=== PATIENT | female | born 1960 | race Caucasian/White ===

== ENCOUNTER 2021-02-08 19:16 | Inpatient (IN) | payer BC ==
[~2021-02-08] VITALS: Ht 172.7 cm; Wt 213.2 kg
[2021-02-08] MEDS ORDERED: ALBUTEROL SULFATE 2.5 MG/3 ML NEBU NEB ONE (19:30)
[2021-02-08] MEDS ORDERED: IPRATROPIUM BROMIDE 0.5 MG/2.5 ML NEBU NEB ONE (19:30)
--- NOTE | 2021-02-08 19:30 | NUR ---
recieved report from [facility]. Pt arrived just prior to shift change at approx 1915. Pt is morbidly obese approx 500lbs with sob poss r/o covid 19. Pt has low sats in the mid to high 80s. No diaphoresis or pain present. Pt is slightly hypotensive at 91/65 and tachy at 119bpm ST. Pt is in no acute distress.
--- NOTE | 2021-02-08 19:40 | NUR ---
EDMD at pt bedside to eval pt condition. Pt is satting around 86-88%
--- NOTE | 2021-02-08 19:50 | NUR ---
Breathing txs ordered for pt who is mildly dyspnic and tachypnic. Two RTs at bedside to start breathing tx. Breathing tx initiated, pt satting at 91% on high flow NRB
[2021-02-08] MEDS ORDERED: ALBUTEROL SULFATE 2.5 MG/ 0.5 ML NEBU ONE (19:55)
[2021-02-08] MEDS ORDERED: IPRATROPIUM BROMIDE 0.5 MG/2.5 ML NEBU ONE (19:55)
[2021-02-08] MEDS ORDERED: FUROSEMIDE 40 MG/4 ML VIAL IV ONE (20:00)
--- NOTE | 2021-02-08 20:05 | NUR ---
Pt placed on bipap at 100% by RT per EDMD order. Pt's SaO2 jumped amita 99% on bipap. Pts saturation holding firm at 99%. RT said she will be back down in a little bit to titrate the pt down from 100% O2. VSS BP: 102/68
--- NOTE | 2021-02-08 21:00 | NUR ---
Unable to get ABG. Patient refused to let us try again. ER Doctor aware.
[2021-02-08] MEDS ORDERED: FUROSEMIDE 20 MG/2 ML VIAL ONE (21:04)
[2021-02-08] MEDS ORDERED: FUROSEMIDE 40 MG/4 ML VIAL ONE (21:04)
[2021-02-08] MEDS ORDERED: FAMO40TA7 PO (21:19)
[2021-02-08] MEDS ORDERED: DOCU100C36 PO (21:19)
[2021-02-08] MEDS ORDERED: FURO40TA5 PO (21:19)
[2021-02-08] MEDS ORDERED: GABA-532 PO (21:19)
[2021-02-08] MEDS ORDERED: TELM1TAB2 PO (21:19)
[2021-02-08] MEDS ORDERED: INSU100V7 SQ (21:19)
[2021-02-08] MEDS ORDERED: INSU100C SUBCUT (21:19)
[2021-02-08] MEDS ORDERED: ASPI81TA31 PO (21:19)
[2021-02-08] MEDS ORDERED: LEVE500T20 PO (21:19)
[2021-02-08] MEDS ORDERED: AMLO2.5T4 PO (21:19)
[2021-02-08] MEDS ORDERED: ALBU2.5V13 IH (21:20)
[2021-02-08 21:33] LABS: MEAN CORPUSCULAR HEMOGLOBIN 27.7 uug (24.7-32.8); MEAN CORPUSCULAR VOLUME 88.2 fL (75.5-95.3); PLATELET COUNT (AUTO) 183 K/uL (179-408)
[2021-02-08 21:43] LABS: CREATININE 1.3 mg/dL (0.6-1.3)
[2021-02-08] MEDS ORDERED: FUROSEMIDE 20 MG TABLET PO ONE (22:00)
[2021-02-08] MEDS ORDERED: FUROSEMIDE 20 MG TABLET ONE (22:00)
[2021-02-08] MEDS ORDERED: ONDANSETRON 4 MG/2 ML VIAL IV PRN (23:30)
[2021-02-08] MEDS ORDERED: INSULIN REGULAR, HUMAN 300 UNIT/3 ML VIAL SQ PRN (23:30)
[2021-02-08] MEDS ORDERED: INSULIN REGULAR, HUMAN 300 UNITS/3 ML VIAL SQ PRN (23:30)
[2021-02-08] MEDS ORDERED: ALBUTEROL SULFATE 2.5 MG/3 ML NEBU IH PRN (23:30)
[2021-02-08] MEDS ORDERED: ENOXAPARIN SODIUM 40 MG/0.4 ML DISP.SYRIN SQ SCH (23:30)
[2021-02-08] MEDS: INSULIN GLARGINE,HUM 300 UNITS/3 ML CARTRIDGE SQ SCH (23:30)
[2021-02-08] MEDS ORDERED: Z GUARD REMEDY PASTE 57 GM TUBE TOP PRN (23:30)
[2021-02-08] MEDS ORDERED: ACETAMINOPHEN 325 MG TABLET PO PRN (23:30)
[2021-02-08] MEDS ORDERED: HYDROCODONE/APAP 5-325MG TABLET PO PRN (23:30)
[2021-02-08] MEDS ORDERED: MAGNESIUM HYDROXIDE 30 ML LIQUID UDC PO PRN (23:30)
[2021-02-08] MEDS ORDERED: DEXTROSE 50% 50 ML DISP.SYRIN IV PRN (23:30)
--- NOTE | 2021-02-08 23:30 | NUR ---
Pt's personal skin care specialist called by the name of Nelly Beebe. She is pts primary skin care specialist and will be the one taking her home from the hospital. Nelly states that pt was at [facility] for same thing CO2 retention and low SaO2 in mid january from 01/14-01/24. Nelly Beebe left her phone number and said to call for any questions or when Ms. Schofield is ready to be picked up. . Nelly states that Ms Schofield suffers from CO2 retention and low O2 perpetually and is placed on long hours of Bipap to correct the CO2 levels. Pt is satting at 99%.
--- NOTE | 2021-02-08 23:30 | NUR ---
50 units of Lantus held due to pt being NPO and BG being 164. Med withheld because did not want to risk bottoming out the BG since pt is unable to eat anything per admitting MD order.
--- NOTE | 2021-02-09 01:48 | NUR ---
Pt resting comfortably with audible snoring. VSS, in no apparent distress. 105/72, 99% Bipap, 106bpm 16 rpm, 2/10 back pain due to gurney. Pt in holding pattern waiting for room assignment.
[2021-02-09] MEDS ORDERED: ENOXAPARIN SODIUM 40 MG/0.4 ML DISP.SYRIN SQ ONE (02:01)
[2021-02-09] MEDS ORDERED: FUROSEMIDE 40 MG/4 ML VIAL ONE (02:01)
[2021-02-09] MEDS ORDERED: INSULIN GLARGINE,HUM 300 UNITS/3 ML CARTRIDGE SQ ONE (02:06)
[2021-02-09] MEDS: FUROSEMIDE 40 MG/4 ML VIAL IV SCH ×2 (05:30)
[2021-02-09 06:24] LABS: HEMATOCRIT 29.6 % (31.2-41.9); MEAN CORPUSCULAR HEMOGLOBIN 27.6 uug (24.7-32.8); MEAN CORPUSCULAR VOLUME 88.2 fL (75.5-95.3); PLATELET COUNT (AUTO) 159 K/uL (179-408)
[2021-02-09 06:37] LABS: CREATININE 1.3 mg/dL (0.6-1.3); MAGNESIUM 1.7 mg/dL (1.8-2.4); PHOSPHOROUS 5.4 mg/dL (2.5-4.9); POTASSIUM 5.2 mmol/L (3.5-5.1)
[2021-02-09] MEDS ORDERED: PANTOPRAZOLE SODIUM 40 MG TABLET.DR PO SCH (07:00)
--- NOTE | 2021-02-09 08:04 | NUR ---
Just informed that Room 329 has been just assigned to pt. Charge nurse Adonis instructed me to call 3rd floor and give report and expodite moving admitted pts to floor. 3rd floor called to give report, however, I was told that nurse are still very busy bc they had just finished recieving report and are still assessing their pts. I asked if the recieving nurse could call me when she is ready. If no call recieved in 30-45 min, I will attempt a second call. Pt is patiently await transport to room for the gurney is becoming extremely painful to lie in.
--- NOTE | 2021-02-09 08:09 | NUR ---
VSS BP:131/58, 104bpm, 91% RA, 97%, 16rpm. pt denies any pain or sob
[2021-02-09] MEDS ORDERED: PANTOPRAZOLE SODIUM 40 MG TABLET.DR PO ONE (08:29)
[2021-02-09] MEDS: GABAPENTIN 300 MG CAPSULE PO SCH ×3 (09:00→17:00)
[2021-02-09] MEDS: ASPIRIN 81 MG TAB.CHEW PO SCH (09:00)
[2021-02-09] MEDS ORDERED: levETIRAcetam 500 MG TABLET PO SCH (09:00)
[2021-02-09] MEDS: LOSARTAN POTASSIUM 50 MG TABLET PO SCH (09:00)
[2021-02-09] MEDS: AMLODIPINE 2.5 MG TABLET PO SCH (09:00)
[2021-02-09] MEDS: DOCUSATE SODIUM 100 MG CAPSULE PO SCH ×2 (09:00→17:00)
[2021-02-09] MEDS ORDERED: MAGNESIUM OXIDE 400 MG TABLET PO ONE (11:00)
[2021-02-09] MEDS ORDERED: ASPIRIN 81 MG TAB.CHEW ONE (11:49)
[2021-02-09] MEDS ORDERED: DOCUSATE SODIUM 100 MG CAPSULE PO ONE (11:49)
[2021-02-09] MEDS ORDERED: levETIRAcetam 250 MG TABLET ONE (11:51)
[2021-02-09] MEDS ORDERED: GABAPENTIN 300 MG CAPSULE ONE (11:52)
[2021-02-09] MEDS ORDERED: AMLODIPINE 2.5 MG TABLET ONE (11:52)
[2021-02-09 12:00] VITALS: BP 102/46
[2021-02-09] MEDS ORDERED: AZITHROMYCIN IV 250 MG in IV DEXTROSE 5% 250 ML IV SCH (12:00)
--- NOTE | 2021-02-09 12:40 | NUR ---
Pt trans to third floor by PEDRO Hall.
[2021-02-09] MEDS ORDERED: AMLO-212 PO (12:48)
[2021-02-09] MEDS ORDERED: DULO60CA64 PO (12:57)
[2021-02-09] MEDS ORDERED: LISI10TA29 PO (12:59)
[2021-02-09 13:00] VITALS: BP 110/54
[2021-02-09] MEDS: BLOOD SUGAR DIAGNOSTIC 1 EACH STRIP VI SCH ×3 (13:00→22:13)
[2021-02-09] MEDS ORDERED: AZITHROMYCIN IV 500 MG in IV DEXTROSE 5% 250 ML IV SCH ×2 (13:00→14:00)
[2021-02-09] MEDS ORDERED: POTA-10 PO (13:03)
[2021-02-09] MEDS ORDERED: ALLO100T PO (13:04)
[2021-02-09] MEDS ORDERED: ATOR40TA PO (13:05)
[2021-02-09] MEDS ORDERED: TIOT18CA3 IH (13:05)
--- NOTE | 2021-02-09 13:30 | NUR ---
Received patient from ER transferred via gurney by Rafael VASQUEZ. Patient is alert, verbally responsive, oriented x3, on non-rebreather at 15LPM. RT initially placed patient on Nasal cannula at 6LPM but O2 sat dropped to 80-85% so RT placed patient back to non-rebreather at 15LPM. Peripheral IV lines on right upper arm G22 patent and right forearm G24 hardly flushing same as endorsed by Rafael. She denies any pain or discomfort at this time. Assisted with her needs. Torrie Lynn BUSINESS PROCESS EXPERT came to see patient and said patient be kept on NPO and do PCR covid test and place on isolation as PUI.
[2021-02-09] MEDS: DEXAMETHASONE SOD PHOSPHATE 10 MG INJ IV SCH (18:29)
--- NOTE | 2021-02-09 19:35 | NUR ---
Received patient lying in bed with eyes closed. Responsive to questions, and able to obey commands, however, too lethargic to stay up. On 15L O2 via non-rebreather mask, saturating at 97-100%. Sinus rhythm on telemonitor. IV on R UA, intact and patent. IV on RFA, difficult to flush. Bedbound, difficult to assess back. Attempted to insert little catheter, however, unsuccessful due to difficulty. Patient kept on NPO to avoid aspiration. Safety precautions initiated. Will continue to monitor.
[2021-02-09 20:00] VITALS: BP 104/66
[2021-02-09] MEDS: INSULIN GLARGINE,HUM 300 UNITS/3 ML CARTRIDGE SQ SCH (21:00)
[2021-02-09] MEDS: levETIRAcetam IV 500 MG in IV DEXTROSE 5% 100 ML IV SCH (22:07)
[2021-02-09] MEDS: ENOXAPARIN SODIUM 40 MG/0.4 ML DISP.SYRIN SQ SCH (22:36)
[2021-02-10] VITALS: BP 112/64
--- NOTE | 2021-02-10 02:30 | NUR ---
Inserted little catheter, draining yellow urine. However, not enough to collect urine sample.
--- NOTE | 2021-02-10 03:30 | NUR ---
Urine collected and sent to lab.
[2021-02-10 04:00] VITALS: BP 110/71
[2021-02-10 05:15] LABS: *BILIRUBIN,URIN NEGATIVE (NEGATIVE); *BLOOD, URINE 2+ (NEGATIVE); *CLARITY,URINE CLEAR (CLEAR); *COLOR,URINE YELLOW (YELLOW); *KETONES,URINE NEGATIVE (NEGATIVE); *UROBILINOGEN,URINE 0.2 E.U./dl (NORMAL); LEUKOCYTE ESTERASE ,URINE NEGATIVE (NEGATIVE); NITRITE, URINE NEGATIVE (NEGATIVE); UGLUCOSE NEGATIVE (NEGATIVE)
[2021-02-10 05:34] LABS: BACTERIA,URINE NONE SEEN /HPF (NONE SEEN); SQUAMOUS EPITHELIAL CELL,UR FEW /HPF (NONE SEEN); URINE AMORPHOUS URATE MODERATE /HPF; WBC,URINE 0-3 /HPF (0-3)
--- NOTE | 2021-02-10 06:18 | NUR ---
Patient slept through the night, appears lethargic but responds by nodding head. IV access on SHAMIR, intact and patent. On tele monitor, showing sinus tachycardia with HR of 104bpm. On 15L NRM, saturating at 98%, however, desaturates down to 84% when moving in bed. With little catheter, draining clear yellow urine. Patient kept on NPO. All needs were attended to and met. Will endorse to day shift.
[2021-02-10 06:34] LABS: HEMATOCRIT 28.7 % (31.2-41.9); MEAN CORPUSCULAR HEMOGLOBIN 28.2 uug (24.7-32.8); MEAN CORPUSCULAR VOLUME 89.7 fL (75.5-95.3); PLATELET COUNT (AUTO) 172 K/uL (179-408)
[2021-02-10 07:21] LABS: CREATININE 1.3 mg/dL (0.6-1.3); MAGNESIUM 1.7 mg/dL (1.8-2.4); PHOSPHOROUS 5.6 mg/dL (2.5-4.9); POTASSIUM 5.6 mmol/L (3.5-5.1)
[2021-02-10] MEDS: BLOOD SUGAR DIAGNOSTIC 1 EACH STRIP VI SCH ×3 (07:40→16:51)
[2021-02-10 07:47] LABS: ABG HCO3 31.1 mmol/L; ABG PH 7.166 (7.350-7.450); ABG PO2 72.1 mmHg (75.0-100.0); ABG SITE RIGHT RADIAL; ABG TOTAL HEMOGLOBIN 9.9 G/dL (12.0-16.0); MetHb 0.1 % (0.0-1.5); O2Hb 94.1 % (94.0-97.0)
--- NOTE | 2021-02-10 08:00 | NUR ---
Patient placed on bipap, settings 18/8 Rate 18/ FIO2 100%. Will continue to monitor.
--- NOTE | 2021-02-10 08:11 | NUR ---
ROUTINE ABG PERFORMED PER DR MUNGUIA ORDER. PER RESULTS, PT PLACED BACK ON BIPAP WITH SETTINGS 18/8/RATE 18/100%. WILL CONTINUE TO CLOSELY MONITOR. PEDRO BRAY AWARE AND NOTIFIED
[2021-02-10] MEDS ORDERED: SODIUM POLYSTYRENE SULFONATE 15 G/60 ML LIQUID UDC PO ONE (09:00)
[2021-02-10] MEDS: GABAPENTIN 300 MG CAPSULE PO SCH ×3 (09:00→17:00)
[2021-02-10] MEDS: DOCUSATE SODIUM 100 MG CAPSULE PO SCH ×2 (09:00→17:00)
[2021-02-10] MEDS: LOSARTAN POTASSIUM 50 MG TABLET PO SCH (09:00)
[2021-02-10] MEDS: ASPIRIN 81 MG TAB.CHEW PO SCH (09:00)
[2021-02-10] MEDS ORDERED: FUROSEMIDE 40 MG/4 ML VIAL IV ONE (09:00)
[2021-02-10] MEDS: AMLODIPINE 2.5 MG TABLET PO SCH (09:00)
[2021-02-10] MEDS: PANTOPRAZOLE SODIUM 40 MG VIAL IV SCH (09:01)
[2021-02-10] MEDS: DEXAMETHASONE SOD PHOSPHATE 10 MG INJ IV SCH ×2 (09:02→17:54)
[2021-02-10] MEDS: levETIRAcetam IV 500 MG in IV DEXTROSE 5% 100 ML IV SCH ×2 (09:04→20:42)
[2021-02-10] MEDS: MAGNESIUM SULFATE/D5W 100 ML IV SCH ×2 (09:52→11:28)
[2021-02-10] MEDS ORDERED: DEXTROSE 50% 50 ML DISP.SYRIN IV ONE (10:15)
[2021-02-10] MEDS ORDERED: INSULIN REGULAR, HUMAN 300 UNIT/3 ML VIAL IV ONE (10:15)
[2021-02-10] MEDS ORDERED: PIPERACILLIN SODIUM/TAZOBACTAM 3.375 G in IV DEXTROSE 5% 50 ML IV ONE (11:00)
[2021-02-10] MEDS ORDERED: PIPERACILLIN SODIUM/TAZOBACTAM 3.375 G in IV DEXTROSE 5% 50 ML IV SCH (14:00)
[2021-02-10 15:30] VITALS: BP 86/33
--- NOTE | 2021-02-10 15:35 | NUR ---
Patient BP 86/33. LICENSED OCCUPATIONAL THERAPIST Shane informed. Orders given and carried out. Will continue to monitor.
[2021-02-10] MEDS ORDERED: IV NORMAL SALINE 250 ML IV ONE ×2 (15:45→18:15)
[2021-02-10 18:10] VITALS: BP 91/44
--- NOTE | 2021-02-10 18:15 | NUR ---
Patient BP 91/44. CAPPING MACHINE OPERATOR Shane informed. Orders given and carried out. Will continue to monitor.
--- NOTE | 2021-02-10 19:51 | NUR ---
Patient resting in bed. On Bipap /, 50% saturating at 93-94%. IV access on right UA patent and intact. Willett catheter draining clear, yellow urine. Sinus Tachycardia on revenue tax specialist. Will endorse to incoming shift for continuity of care.
[2021-02-10 20:00] VITALS: BP 98/31
[2021-02-10] MEDS ORDERED: DEXTROSE 50% 50 ML DISP.SYRIN IV PRN (20:15)
[2021-02-10] MEDS: PIPERACILLIN SODIUM/TAZOBACTAM 3.375 G in IV DEXTROSE 5% 100 ML IV SCH (20:37)
[2021-02-10] MEDS: ENOXAPARIN SODIUM 40 MG/0.4 ML DISP.SYRIN SQ SCH (20:38)
[2021-02-11] VITALS: BP 107/33
[2021-02-11] MEDS: BLOOD SUGAR DIAGNOSTIC 1 EACH STRIP VI SCH ×4 (00:32→17:17)
--- NOTE | 2021-02-11 03:23 | NUR ---
PATIENT HAS BEEN ON BI/PAP CONT NOSE CUSHION MASK, TOLL WELL, WITH CONT PULSE OXY SAT 97%. WITH BI/PAP SETTINGS, 22/09 R18, FIO2 @ 50, STABLE, NO CHANGES MADE AT THIS TIME .John HAYES RCP Addendum: 02/11/21 at 0324 by DAGMAR HAYES RT Amended: Links added.
[2021-02-11 04:00] VITALS: BP 100/38
[2021-02-11] MEDS: PIPERACILLIN SODIUM/TAZOBACTAM 3.375 G in IV DEXTROSE 5% 100 ML IV SCH ×3 (04:24→21:08)
--- NOTE | 2021-02-11 06:36 | NUR ---
Pt rested well in between care; pt more alert; tolerates present BiPap settings; pt passed bedside swallow test; c/o pain and norco given with aspiration precaution; needs attended; 2 previous IV dcd and placed new g22 to right wrist;
[2021-02-11 07:26] LABS: HEMATOCRIT 23.1 % (31.2-41.9); MEAN CORPUSCULAR HEMOGLOBIN 27.5 uug (24.7-32.8); PLATELET COUNT (AUTO) 145 K/uL (179-408)
[2021-02-11 07:30] LABS: CREATININE 1.8 mg/dL (0.6-1.3); POTASSIUM 4.6 mmol/L (3.5-5.1)
[2021-02-11 08:00] VITALS: BP 81/31
[2021-02-11] MEDS: PANTOPRAZOLE SODIUM 40 MG VIAL IV SCH (08:00)
[2021-02-11] MEDS: DEXAMETHASONE SOD PHOSPHATE 10 MG INJ IV SCH ×2 (08:00→16:28)
--- NOTE | 2021-02-11 08:00 | NUR ---
AWAKE ALERT AND VERBALLY RESPONSIVE RESPONDING TO VERBAL CUES/QUESTIONS APPROPRIATELY. EASILY SOB ON TURNING FROM SIDE TO SIDE, CONTINUE BIPAP AT SAME SETTINGS SATURATING 95-96% SR ON MONITOR
[2021-02-11] MEDS: levETIRAcetam IV 500 MG in IV DEXTROSE 5% 100 ML IV SCH ×2 (08:02→21:08)
[2021-02-11] MEDS: GABAPENTIN 300 MG CAPSULE PO SCH ×3 (09:00→16:28)
[2021-02-11] MEDS: DOCUSATE SODIUM 100 MG CAPSULE PO SCH ×2 (09:00→16:28)
[2021-02-11] MEDS: LOSARTAN POTASSIUM 50 MG TABLET PO SCH (09:00)
[2021-02-11] MEDS: AMLODIPINE 2.5 MG TABLET PO SCH (09:00)
[2021-02-11] MEDS: ASPIRIN 81 MG TAB.CHEW PO SCH (09:00)
[2021-02-11 09:38] LABS: ABG BASE EXCESS 1.6 mmol/L; ABG HCO3 29.1 mmol/L; ABG PCO2 63.5 mmHg (35.0-45.0); ABG PH 7.279 (7.350-7.450); ABG SITE LEFT RADIAL; ABG TOTAL HEMOGLOBIN 9.1 G/dL (12.0-16.0); COHb 0.1 % (0.5-1.5); MetHb 0.2 % (0.0-1.5); O2Hb 93.6 % (94.0-97.0); VENT MODE BIPAP
[2021-02-11 12:00] VITALS: BP 96/42
--- NOTE | 2021-02-11 12:00 | NUR ---
NO ACUTE CHANGE FROM MORNING ASSESSMENT. RESULTS OF ABG IN DR MUNGUIA MADE OF RESULTS. BIPAP SETTINGS AT 18/8-18-40% SSATURATING 97-98 %
[2021-02-11] MEDS: INSULIN REGULAR, HUMAN 300 UNIT/3 ML VIAL SQ PRN ×2 (12:20→17:19)
[2021-02-11] MEDS ORDERED: IV NORMAL SALINE 500 ML IV ONE (14:15)
[2021-02-11] MEDS ORDERED: IV NS 1000 ML 1,000 ML IV ONE (14:15)
--- NOTE | 2021-02-11 14:52 | NUR ---
SEEN BY DR BLACKWELL NOTED LOW BP WITH ORDER TO GIVE NS BOLUS AND WILL START ON CONTINUOUS IV NS AFTER BOLUS
--- NOTE | 2021-02-11 14:54 | NUR ---
AWAKE ALERT AND RESPONDING APPROPRIATELY WITH VERBAL COMMAND, EASILY GET SOB ON EXERTION OR TURNING FROM SIDE TO SIDE CONTINUE BIPAP ORDERED SR ON MONITOR Addendum: 02/11/21 at 1456 by NADEEM RICK RN 0800 ASSESSMENT
[2021-02-11 15:00] LABS: HEMATOCRIT 25.1 % (31.2-41.9)
[2021-02-11 16:00] VITALS: BP 98/46
--- NOTE | 2021-02-11 19:20 | NUR ---
Per MD orders BIPAP settings are now at IPAP 15, EPAP 5, set resp. rate 22 and FIO2-50%. SpO2 to be targeted at 88-92% No resp. distress noted. Pt appears to be tolerating settings well. Pt to be monitored throughout the shift.
[2021-02-11 20:00] VITALS: BP 105/66
[2021-02-11] MEDS: ATORVASTATIN 40 MG TABLET PO SCH (21:08)
[2021-02-11] MEDS: ENOXAPARIN SODIUM 40 MG/0.4 ML DISP.SYRIN SQ SCH (21:10)
[2021-02-12] VITALS: BP 100/55
[2021-02-12] MEDS: INSULIN REGULAR, HUMAN 300 UNIT/3 ML VIAL SQ PRN ×5 (00:15→23:54)
[2021-02-12] MEDS: BLOOD SUGAR DIAGNOSTIC 1 EACH STRIP VI SCH ×5 (00:17→23:54)
[2021-02-12 04:00] VITALS: BP 115/60
[2021-02-12] MEDS: PIPERACILLIN SODIUM/TAZOBACTAM 3.375 G in IV DEXTROSE 5% 100 ML IV SCH ×3 (05:02→19:59)
--- NOTE | 2021-02-12 05:53 | NUR ---
Slept intermittently. SR/ST on monitor. Able to make needs known. IV sites intact. Willett draining yellow urine to gravity. No distress noted. Will endorse to day shift.
[2021-02-12 08:14] VITALS: BP 124/61
[2021-02-12 08:34] LABS: ABG BASE EXCESS 2.4 mmol/L; ABG HCO3 30.8 mmol/L; ABG PCO2 74.6 mmHg (35.0-45.0); ABG PH 7.234 (7.350-7.450); ABG PO2 72.1 mmHg (75.0-100.0); ABG SITE LEFT RADIAL; ABG TOTAL HEMOGLOBIN 8.7 G/dL (12.0-16.0); COHb 0.1 % (0.5-1.5); MetHb 0.3 % (0.0-1.5); O2Hb 92.4 % (94.0-97.0); VENT MODE BIPAP15/5
[2021-02-12 08:45] LABS: HEMATOCRIT 24.8 % (31.2-41.9); MEAN CORPUSCULAR HEMOGLOBIN 26.7 uug (24.7-32.8); MEAN CORPUSCULAR VOLUME 86.5 fL (75.5-95.3); PLATELET COUNT (AUTO) 146 K/uL (179-408)
[2021-02-12] MEDS: ALLOPURINOL 100 MG TABLET PO SCH ×2 (09:00→09:24)
[2021-02-12] MEDS: ASPIRIN 81 MG TAB.CHEW PO SCH ×2 (09:00→09:24)
[2021-02-12] MEDS: DULOXETINE 60 MG CAPSULE.DR PO SCH ×2 (09:00→09:24)
[2021-02-12] MEDS: PANTOPRAZOLE SODIUM 40 MG VIAL IV SCH (09:23)
[2021-02-12] MEDS: DOCUSATE SODIUM 100 MG CAPSULE PO SCH ×2 (09:24→17:00)
[2021-02-12] MEDS: GABAPENTIN 300 MG CAPSULE PO SCH ×3 (09:24→17:00)
[2021-02-12] MEDS: levETIRAcetam IV 500 MG in IV DEXTROSE 5% 100 ML IV SCH ×2 (09:24→20:00)
[2021-02-12] MEDS: DEXAMETHASONE SOD PHOSPHATE 10 MG INJ IV SCH ×2 (09:24→17:34)
[2021-02-12 09:26] LABS: CREATININE 1.4 mg/dL (0.6-1.3); MAGNESIUM 2.2 mg/dL (1.8-2.4); PHOSPHOROUS 4.3 mg/dL (2.5-4.9); POTASSIUM 4.4 mmol/L (3.5-5.1)
[2021-02-12 12:28] VITALS: BP 112/58
[2021-02-12 17:19] VITALS: BP 117/47
[2021-02-12 20:00] VITALS: BP 113/57
[2021-02-12] MEDS: ATORVASTATIN 40 MG TABLET PO SCH (20:00)
[2021-02-12] MEDS: ENOXAPARIN SODIUM 40 MG/0.4 ML DISP.SYRIN SQ SCH (20:02)
[2021-02-13] VITALS (21 sets, daily range): BP systolic 80–142; BP diastolic 43–80
[2021-02-13] MEDS: PIPERACILLIN SODIUM/TAZOBACTAM 3.375 G in IV DEXTROSE 5% 100 ML IV SCH ×3 (05:11→20:45)
--- NOTE | 2021-02-13 05:40 | NUR ---
Pt very anxious and needy. Able to make needs known. Requesting to drink water throughout shift, educated on NPO status. Oral care provided. Currently tolerating BiPAP, satting at 94%. BP has been stable. IV sites intact. Willett draining urine to gravity.
[2021-02-13] MEDS: BLOOD SUGAR DIAGNOSTIC 1 EACH STRIP VI SCH ×3 (06:17→18:37)
[2021-02-13] MEDS: INSULIN REGULAR, HUMAN 300 UNIT/3 ML VIAL SQ PRN ×2 (06:23→13:06)
[2021-02-13 07:48] LABS: ABG BASE EXCESS 1.5 mmol/L; ABG HCO3 30.1 mmol/L; ABG PCO2 72.9 mmHg (35.0-45.0); ABG PH 7.234 (7.350-7.450); ABG PO2 70.6 mmHg (75.0-100.0); ABG SITE LEFT RADIAL; ABG TOTAL HEMOGLOBIN 9.8 G/dL (12.0-16.0); COHb 0.3 % (0.5-1.5); MetHb 0.4 % (0.0-1.5); O2Hb 91.5 % (94.0-97.0); VENT MODE BIPAP 15/5
--- NOTE | 2021-02-13 08:00 | NUR ---
PT is in no acute distress. Call light is within reach. PT on Bariatric Bed. F/C draining Yellow urine. ML on left upper brachial. intact flushes with minimal resistance. Bariatric bed setting on q turn every 15 mins settings.
[2021-02-13 08:27] LABS: HEMATOCRIT 27.3 % (31.2-41.9); MEAN CORPUSCULAR HEMOGLOBIN 27.2 uug (24.7-32.8); MEAN CORPUSCULAR VOLUME 87.2 fL (75.5-95.3); PLATELET COUNT (AUTO) 152 K/uL (179-408)
[2021-02-13 08:35] LABS: CREATININE 1.3 mg/dL (0.6-1.3); MAGNESIUM 2.1 mg/dL (1.8-2.4); PHOSPHOROUS 4.2 mg/dL (2.5-4.9); POTASSIUM 4.3 mmol/L (3.5-5.1)
--- NOTE | 2021-02-13 09:00 | NUR ---
PT desaturating to 82%. RT repositioned BIPAP mask and changed setting to 100% FIO2 and got o2 sat back up 90%'s . Dr diaz here to see pt and aware of current ABG results and desaturation. No new order received.
--- NOTE | 2021-02-13 09:00 | NUR ---
Unable to give PO meds secondary to pt too lethargic.
[2021-02-13] MEDS: DEXAMETHASONE SOD PHOSPHATE 10 MG INJ IV SCH ×2 (10:11→16:13)
[2021-02-13] MEDS: DOCUSATE SODIUM 100 MG CAPSULE PO SCH ×2 (10:12→15:48)
[2021-02-13] MEDS: DULOXETINE 60 MG CAPSULE.DR PO SCH (10:12)
[2021-02-13] MEDS: ALLOPURINOL 100 MG TABLET PO SCH (10:12)
[2021-02-13] MEDS: ASPIRIN 81 MG TAB.CHEW PO SCH (10:12)
[2021-02-13] MEDS: GABAPENTIN 300 MG CAPSULE PO SCH ×3 (10:12→16:14)
[2021-02-13] MEDS: PANTOPRAZOLE SODIUM 40 MG VIAL IV SCH (10:16)
[2021-02-13] MEDS: levETIRAcetam IV 500 MG in IV DEXTROSE 5% 100 ML IV SCH ×2 (10:16→20:45)
--- NOTE | 2021-02-13 10:30 | NUR ---
Spoke with mechanical shop laborer repeated and verified that there was a specimen sent for pcr on the 02/11.
--- NOTE | 2021-02-13 13:13 | NUR ---
technical service specialist called to check on patient secondary to low HR @ 30's. Saw pt 1315 No breathing noted. 02 sat @ 72% on bipap No pulse Noted. Started CPR and Derek Morales called. ER DR MUNGUIA, RTs, Radiology, Nursing psychiatric social worker supervisor derek morales team here to see pt. See Derek morales recording done by RN psychiatric social worker supervisor. 1331 ET tube inserted by Dr Munguia. Hospitalist Torrie Hammer and Dr diaz aware of the intubation. 1410 Transferred pt to ICU as ordered. VS 126/45 - hr115 sinus tach, pt on vent per 's order and RT team. sat 92%. Report given to TRAFFIC SAFETY ADMINISTRATORPEDRO HARRELL.
--- NOTE | 2021-02-13 13:31 | NUR ---
PT INTUBATED BY WITH A SIZE 7.5 ETT WITHOUT DIFFICULTY. ETT SECURED WITH ANCORFAST APPROX. 24CM AT THE LIP. COLOR CHANGE ON END TIDAL, BI-LATERAL BREATH SOUND OBSERVED. PT PLACED ON VENT ON SETTINGS GIVEN BY DR. ARCHIBALD. PT TRANSPORTED TO [facility]. PT IS CURRENTLY ON VENT SETTINGS OF A/C 28, VT 550, PEEP +8, 100% FIO2. SPUTUM SPECIMEN COLLECTED. BVM AT BEDSIDE. VENT PLUGGED INTO RED OUTLET. WILL CONTINUE TO MONITOR.
[2021-02-13] MEDS ORDERED: EPINEPHRINE 1:10,000 1 MG/10 ML DISP.SYRIN IV ONE (13:51)
[2021-02-13] MEDS ORDERED: ETOMIDATE 20 MG/10 ML VIAL IV ONE (13:51)
[2021-02-13] MEDS: PROPOFOL 100 ML IV PRN ×2 (14:40→21:30)
[2021-02-13 15:21] LABS: ABG BASE EXCESS -3.9 mmol/L; ABG HCO3 27.6 mmol/L; ABG PCO2 97.6 mmHg (35.0-45.0); ABG PO2 72.5 mmHg (75.0-100.0); ABG SITE LEFT RADIAL; ABG TOTAL HEMOGLOBIN 10.4 G/dL (12.0-16.0); COHb 0.2 % (0.5-1.5); MetHb 0.2 % (0.0-1.5); VENT MODE VENT - A/C; VT, ABG 500 mL
[2021-02-13] MEDS ORDERED: SODIUM BICARBONATE 8.4% 50 MEQ/50 ML DISP.SYRIN IV ONE (16:00)
[2021-02-13] MEDS ORDERED: IV NORMAL SALINE 250 ML IV PRN (19:00)
[2021-02-13] MEDS: ENOXAPARIN SODIUM 40 MG/0.4 ML DISP.SYRIN SQ SCH (21:02)
[2021-02-13] MEDS: ATORVASTATIN 40 MG TABLET PO SCH (21:02)
--- NOTE | 2021-02-13 21:30 | NUR ---
Blood cultures, urine cultures, sputum cultures to laboratory.
[2021-02-13] MEDS ORDERED: MEROPENEM 1 G VIAL IV ONE ×2 (21:58→22:00)
[2021-02-13] MEDS ORDERED: VANCOMYCIN HCL 500 MG VIAL ONE (21:59)
[2021-02-13] MEDS ORDERED: VANCOMYCIN 1000 MG VIAL ONE (21:59)
[2021-02-13] MEDS: MEROPENEM 1 G in IV NORMAL SALINE 100 ML IV SCH (22:00)
[2021-02-13] MEDS ORDERED: VANCOMYCIN IV 1,250 MG in IV DEXTROSE 5% 250 ML IV ONE (22:00)
[2021-02-13] MEDS ORDERED: MEROPENEM 1 G in IV NORMAL SALINE 100 ML IV SCH (22:00)
[2021-02-13] MEDS: NOREPINEPHRINE BITARTRATE 8 MG in IV NORMAL SALINE 242 ML IV PRN (23:13)
--- NOTE | 2021-02-13 23:15 | NUR ---
Received notification from laboratory: PCR positive from [id number]
[2021-02-13] MEDS ORDERED: NOREPINEPHRINE BITARTRATE 4 MG/4 ML VIAL IV ONE (23:25)
[2021-02-14] VITALS (43 sets, daily range): BP systolic 83–149; BP diastolic 40–87
[2021-02-14] MEDS: BLOOD SUGAR DIAGNOSTIC 1 EACH STRIP VI SCH ×4 (00:12→17:45)
[2021-02-14] MEDS: INSULIN REGULAR, HUMAN 300 UNIT/3 ML VIAL SQ PRN ×3 (00:14→18:02)
[2021-02-14] MEDS: PROPOFOL 100 ML IV PRN ×9 (02:03→23:23)
[2021-02-14] MEDS: NOREPINEPHRINE BITARTRATE 8 MG in IV NORMAL SALINE 242 ML IV PRN ×3 (03:18→19:42)
[2021-02-14] MEDS: MEROPENEM 1 G in IV NORMAL SALINE 100 ML IV SCH (05:09)
[2021-02-14 05:16] LABS: HEMATOCRIT 27.4 % (31.2-41.9); MEAN CORPUSCULAR VOLUME 86.7 fL (75.5-95.3); PLATELET COUNT (AUTO) 163 K/uL (179-408)
[2021-02-14 05:35] LABS: CREATININE 1.9 mg/dL (0.6-1.3); MAGNESIUM 2.1 mg/dL (1.8-2.4); PHOSPHOROUS 4.7 mg/dL (2.5-4.9); POTASSIUM 4.1 mmol/L (3.5-5.1)
--- NOTE | 2021-02-14 07:15 | NUR ---
Received pt. semi-sedated and attempting to reach ETT. gag and cough reflex present. Hemodynamically unstable, levophed running at 0.1mcg/kg/min. sbp within desire limits. On ventilator ETT 7.5, 24LL. A/C, of 28, Tv500, Peep +8, and FIO2 100%. saturation 92-93%. OG clamped. little to gravity. Iv line present. Patient soiled and stuck to left side of her bed. IV line patent. Sacral area non-blanchable dark purplish area extended to buttocks and sacrum. Skin tear to upper left buttocks area. Unable to take pictures at this time pt. unstable and not tolerating been moved.
--- NOTE | 2021-02-14 09:30 | NUR ---
Social Psychologist Dr. Salazar in the unit to see and follow up on pt. Report given see order hx
[2021-02-14] MEDS: PANTOPRAZOLE SODIUM 40 MG VIAL IV SCH (09:42)
[2021-02-14] MEDS: DEXAMETHASONE SOD PHOSPHATE 10 MG INJ IV SCH ×2 (09:42→17:37)
[2021-02-14] MEDS: GABAPENTIN 300 MG CAPSULE PO SCH ×3 (09:43→17:36)
[2021-02-14] MEDS: ASPIRIN 81 MG TAB.CHEW PO SCH (09:43)
[2021-02-14] MEDS: DOCUSATE SODIUM 100 MG CAPSULE PO SCH ×2 (09:43→17:36)
[2021-02-14] MEDS: levETIRAcetam IV 500 MG in IV DEXTROSE 5% 100 ML IV SCH ×2 (09:46→21:08)
[2021-02-14] MEDS: DULOXETINE 60 MG CAPSULE.DR PO SCH (09:53)
[2021-02-14] MEDS: ALLOPURINOL 100 MG TABLET PO SCH (09:53)
[2021-02-14 10:04] LABS: BILIRUBIN,DIRECT 0.1 mg/dL (0.0-0.2); BILIRUBIN,TOTAL 0.3 mg/dL (0.2-1.0)
[2021-02-14 10:09] LABS: ABG BASE EXCESS 0.9 mmol/L; ABG HCO3 30.4 mmol/L; ABG PCO2 81.9 mmHg (35.0-45.0); ABG PH 7.188 (7.350-7.450); ABG PO2 57.8 mmHg (75.0-100.0); ABG SITE RIGHT RADIAL; ABG TOTAL HEMOGLOBIN 9.8 G/dL (12.0-16.0); COHb 0.1 % (0.5-1.5); O2Hb 87.5 % (94.0-97.0); VENT MODE VENT - A/C; VT, ABG 550 mL
--- NOTE | 2021-02-14 11:00 | NUR ---
Attending Daren Arnold in the unit to follow up on pt. At this time orders to start feeding received. Addendum: 02/14/21 at 1529 by ANTHONY CHAMORRO RN Attending updated on pt's deteriorating condition and informed that feeding wont be possible at this time, She was informed that pt. remains unstable with saturation in the mid70's to 80's.
--- NOTE | 2021-02-14 11:58 | NUR ---
Dr. Salazar called and notified of pt's sustained desaturation. Orders to increase Peep to 10 received and informed to RT Juan Antonio.
[2021-02-14] MEDS ORDERED: VANCOMYCIN IV 2,500 MG in IV DEXTROSE 5% 500 ML IV SCH (12:00)
--- NOTE | 2021-02-14 12:28 | NUR ---
Dr. diaz notified that Patients saturation continues to have saturation in 70's. Received orders to increase Peep to 13.
--- NOTE | 2021-02-14 13:00 | NUR ---
Dr. Salazar updated on pt's current saturation no new orders received.
--- NOTE | 2021-02-14 13:00 | NUR ---
A call from pt's brother and call directed to attending N.P. as reported by Amy. Esther he needed to talk to attending to discuss code status.
[2021-02-14] MEDS ORDERED: TOCILIZUMAB 800 MG in IV NORMAL SALINE 60 ML IV ONE (14:00)
[2021-02-14] MEDS ORDERED: CEFEPIME HCL 2 G in IV DEXTROSE 5% 100 ML IV SCH (14:00)
--- NOTE | 2021-02-14 14:15 | NUR ---
A call from Shlomo Schofield and at this time with Jason Santana as witness and after Attending, Torrie Lynn updated him on pt. current condition. . Shlomo Schofield stated "I want to change the code to DNR". Attending notified as well.
[2021-02-14] MEDS ORDERED: VANCOMYCIN IV 2,500 MG in IV DEXTROSE 5% 500 ML IV ONE (16:15)
--- NOTE | 2021-02-14 17:00 | NUR ---
Dr. Salazar pulmonary services called and updated on current pt's saturation and that pt. poorly tolerating ADL's no new orders received.
--- NOTE | 2021-02-14 19:15 | NUR ---
received patient sedated, no response , on levophed 0.08 mcg , propofol a 40mcg , iv intact on left upperarm , ogt placement checked and verified , mouth is bloody with small clots , suctioned orally little intact , morbid obesity , pulses are weak ST AT 104 , NO FEVER
--- NOTE | 2021-02-14 19:15 | NUR ---
RECEIVED PATIENT SEDATED NO RESPONSE , MORBID OBESITY , ON PROPOFOL AT 40 MCG , LEVOPHED AT 0.08 MCG , ST AT 104 , OGT CLAMPED PLACEMENT CHECKED AND VERIFIED , BLOODY MOUTH WITH SMALL DRY BLOOD , SUCTIONED ORALLY . IV INTACT ON LEFT UPPER ARM , ARMIJO INTACT , PULSES ARE WEAK , VENT SETTING AC 28 TV 500 P 16 , FIO2 100 %
--- NOTE | 2021-02-14 19:15 | NUR ---
PATIENT RECEIVED INTUBATED ON A MECHANICAL VENTILATOR WITH THE FOLLOWING SETTINGS THAT ARE CHARTED ON THE MECHANICAL VENTILATOR NOTES. PATIENT IS INTUBATED WITH A SIZE 7.5 ET TUBE AND IT IS SECURED AT APPROXIMATELY 24 CM AT THE LIP VIA ANCHOR FAST. ET TUBE REPOSITIONED. PRN SUCTIONED DONE. ORAL CARE DONE. VENTILATOR ALARMS CHECKED AND THEY ARE ON AND AUDIBLE. VENTILATOR IS PLUGGED IN THE RED EMERGENCY OUTLET. AMBU BAG IS BY BEDSIDE. PATIENT IS TOLERATING CURRENT VENTILATOR SETTINGS WELL AT THIS TIME. NO SOB NOTED. WILL CONTINUE TO MONITOR.
[2021-02-14] MEDS: NYSTATIN POWDER 15 GM BOTTLE TOP SCH (21:00)
[2021-02-14] MEDS: ATORVASTATIN 40 MG TABLET PO SCH ×2 (21:00→21:12)
[2021-02-14] MEDS: ENOXAPARIN SODIUM 40 MG/0.4 ML DISP.SYRIN SQ SCH (21:13)
[2021-02-15] VITALS (68 sets, daily range): BP systolic 57–150; BP diastolic 33–67
[2021-02-15] MEDS: BLOOD SUGAR DIAGNOSTIC 1 EACH STRIP VI SCH ×4 (00:54→18:43)
[2021-02-15] MEDS: INSULIN REGULAR, HUMAN 300 UNIT/3 ML VIAL SQ PRN ×4 (00:55→18:47)
[2021-02-15] MEDS: PROPOFOL 100 ML IV PRN ×4 (01:25→22:09)
[2021-02-15] MEDS: NOREPINEPHRINE BITARTRATE 8 MG in IV NORMAL SALINE 242 ML IV PRN (03:43)
[2021-02-15] MEDS ORDERED: NOREPINEPHRINE BITARTRATE 4 MG/4 ML VIAL IV ONE (03:43)
[2021-02-15 05:24] LABS: MEAN CORPUSCULAR HEMOGLOBIN 29.3 uug (24.7-32.8); MEAN CORPUSCULAR VOLUME 89.9 fL (75.5-95.3); PLATELET COUNT (AUTO) 178 K/uL (179-408)
--- NOTE | 2021-02-15 05:48 | NUR ---
talked to cristin , family member , phone number is [phone]
[2021-02-15 06:06] LABS: MAGNESIUM 2.1 mg/dL (1.8-2.4); POTASSIUM 4.9 mmol/L (3.5-5.1); VANCOMYCIN,RANDOM 31.8 ug/mL (18.0-26.0)
--- NOTE | 2021-02-15 06:30 | NUR ---
currently , oxygen saturation is down to 20 % , vent setting of ac 24 , tv 500 , p 16 , 100 fio2 % , ogt intact , mouth has moderate dry blood and frothy , diprivan was turned off , blood pressure is 60/ 30 , hr is 57 , levophed is increased to 1 mcg , little an dpicc line intact
--- NOTE | 2021-02-15 07:19 | NUR ---
propofol is restartred at 25 mcg , levophed is decreasedd 0.08 mcg
[2021-02-15] MEDS ORDERED: NOREPINEPHRINE BITARTRATE 32 MG in IV NORMAL SALINE 218 ML IV PRN (08:00)
[2021-02-15] MEDS: levETIRAcetam IV 500 MG in IV DEXTROSE 5% 100 ML IV SCH ×2 (08:46→20:24)
[2021-02-15] MEDS: GABAPENTIN 300 MG CAPSULE PO SCH ×3 (08:46→18:15)
[2021-02-15] MEDS: DEXAMETHASONE SOD PHOSPHATE 10 MG INJ IV SCH ×2 (08:46→18:15)
[2021-02-15] MEDS: ASPIRIN 81 MG TAB.CHEW PO SCH (08:46)
[2021-02-15] MEDS: PANTOPRAZOLE SODIUM 40 MG VIAL IV SCH (08:46)
[2021-02-15] MEDS: DULOXETINE 60 MG CAPSULE.DR PO SCH (08:46)
[2021-02-15] MEDS: ALLOPURINOL 100 MG TABLET PO SCH (08:46)
[2021-02-15] MEDS: NYSTATIN POWDER 15 GM BOTTLE TOP SCH ×2 (08:47→21:31)
[2021-02-15] MEDS: DOCUSATE SODIUM 100 MG CAPSULE PO SCH ×2 (09:00→17:00)
[2021-02-15] MEDS: NOREPINEPHRINE BITARTRATE 32 MG in IV NORMAL SALINE 218 ML IV PRN ×2 (10:48→18:16)
[2021-02-15] MEDS: MEROPENEM 1 G in IV NORMAL SALINE 100 ML IV SCH ×2 (13:06→20:23)
[2021-02-15] MEDS: IV D5LR 1,000 ML IV PRN (13:08)
--- NOTE | 2021-02-15 15:38 | NUR ---
changed Tidal volume to 500 per last service order clerk.
--- NOTE | 2021-02-15 20:00 | NUR ---
INTUBATED ON VENT 7.5 /24 CM VENT SETTINGS AC28/500/100% /PEEP 16 ,RECEIVED SATURATION LOW 63 AND PER DAY SHIFT MD AWARE. PTS CODE STATUS DNR AND SATURATION BEEN ON THE LOW SIDE SINCE YESTERDAY . SEE V/S SHEET.SUCTION PATIENT VERY MINIMAL SECRETIONS VIA THE ETT AND VIA MOUTH . ST ON THE HEART MONITOR 127 AFEBRILE TEMP 99.7 F VIA AXILLARY OGT CLAMP NPO NGT FOR MEDICATION ONLY . RIGHT PICCLINE :LEVOPHED DRIP AT .34 MCG/KG/MIN TO KEEP SBP >90 MM/HG D5 LR AT 70 ML/HR PROPOFOL DRIP AT 10 MCG/KG/MIN . F/C TO BSD WITH YELLOWISH URINE . CONTINUE TO MONITOR I AND OS . CONTINUE TO MONITOR COVID 19 + CODE STATUS .
[2021-02-15] MEDS: ATORVASTATIN 40 MG TABLET PO SCH (20:23)
[2021-02-15] MEDS: ENOXAPARIN SODIUM 40 MG/0.4 ML DISP.SYRIN SQ SCH (20:41)
[2021-02-16] VITALS (48 sets, daily range): BP systolic 49–109; BP diastolic 37–55
--- NOTE | 2021-02-16 01:00 | NUR ---
bp is low 80/40 hr 100 , off sedation patient is not overriding the vent settings . titrated Levophed and follow Levophed protocol .see spreadsheet .
[2021-02-16] MEDS: BLOOD SUGAR DIAGNOSTIC 1 EACH STRIP VI SCH ×3 (01:08→12:50)
[2021-02-16] MEDS: INSULIN REGULAR, HUMAN 300 UNIT/3 ML VIAL SQ PRN ×2 (01:14→05:31)
[2021-02-16] MEDS: NOREPINEPHRINE BITARTRATE 32 MG in IV NORMAL SALINE 218 ML IV PRN ×5 (02:02→14:32)
--- NOTE | 2021-02-16 02:28 | NUR ---
PATIENT ON CONT SIGALA VENT WITH 7.5 ET/TUBE IN PLACE AND SECURED, WITH VENT SETTINGS, A/C 28, 500ML, PEEP 16, 100%, MOSTLY CONTROLLED VENTILATION, SAT 65%, DROPPING TO 55% BY 0200, NO VENT CHANGES MADE , ABG IN AM PT IS A DNR STATUS. John HAYES FIELD SALES AGENT Addendum: 02/16/21 at 0231 by DAGMAR HAYES RT Amended: Links added.
[2021-02-16] MEDS: MEROPENEM 1 G in IV NORMAL SALINE 100 ML IV SCH (04:15)
[2021-02-16 05:26] LABS: HEMATOCRIT 32.4 % (31.2-41.9); MEAN CORPUSCULAR HEMOGLOBIN 26.5 uug (24.7-32.8); MEAN CORPUSCULAR VOLUME 91.6 fL (75.5-95.3); PLATELET COUNT (AUTO) 251 K/uL (179-408)
[2021-02-16 05:40] LABS: BILIRUBIN,DIRECT 0.7 mg/dL (0.0-0.2); BILIRUBIN,TOTAL 0.9 mg/dL (0.2-1.0); CREATININE 3.7 mg/dL (0.6-1.3); MAGNESIUM 2.5 mg/dL (1.8-2.4); VANCOMYCIN,RANDOM 28.9 ug/mL (18.0-26.0)
--- NOTE | 2021-02-16 06:00 | NUR ---
PARTIAL LINEN CHANGED DONE AND SPONGE CARE DONE ,PATIENT VERY UNSTABLE TO TURNED LOW SATURATION 50% TO 60 % ON THE VENT AT 100% FIO2,ON LEVOPHED DRIP MAX AND STARTED ON NEOSYNEPHRINE DRIP FOR LOW BP 78/46 HR HR 113. .
[2021-02-16 06:03] LABS: ABG BASE EXCESS -11.2 mmol/L; ABG HCO3 19.5 mmol/L; ABG PCO2 69.3 mmHg (35.0-45.0); ABG PH 7.067 (7.350-7.450); ABG PO2 45.2 mmHg (75.0-100.0); ABG SITE LEFT RADIAL; ABG TOTAL HEMOGLOBIN 11.4 G/dL (12.0-16.0); COHb 0.6 % (0.5-1.5); MetHb 0.1 % (0.0-1.5); O2Hb 67.7 % (94.0-97.0); VENT MODE VENT - A/C; VT, ABG 500 mL
[2021-02-16 06:11] LABS: PHOSPHOROUS 8.5 mg/dL (2.5-4.9); POTASSIUM 6.3 mmol/L (3.5-5.1)
[2021-02-16] MEDS: PHENYLEPHRINE IV 100 MG in IV NORMAL SALINE 240 ML IV PRN ×4 (06:44→15:49)
--- NOTE | 2021-02-16 07:10 | NUR ---
Received pt. on ventilator, A/C28, Tv 500 Peep 16, and FIO2 100% pt, noted to be in tachypneic deep labor breathing with use of accessory muscles. Hemodynamically unstable max-out on two vasopressors. with SBP in the low 60-70's. and as reported all disciplines involved aware.. Pulses weak and barely palpable. Neuro-sanchez off sedation and patient non-responsive to deep painful stimuli, BELINDA upon assessment. OG in placed clumped, little to gravity with almost no output. IV line patent. Sacral area with dark purplish area from buttocks, to sacrum. Patient remains critical and poorly tolerating been moved. Remains on bariatric bed on automatic turning Q15min. Will continue to monitor.
[2021-02-16] MEDS: DEXAMETHASONE SOD PHOSPHATE 10 MG INJ IV SCH (08:23)
[2021-02-16] MEDS: PANTOPRAZOLE SODIUM 40 MG VIAL IV SCH (08:23)
[2021-02-16] MEDS: ASPIRIN 81 MG TAB.CHEW PO SCH (08:23)
[2021-02-16] MEDS: ALLOPURINOL 100 MG TABLET PO SCH (08:24)
[2021-02-16] MEDS: GABAPENTIN 300 MG CAPSULE PO SCH ×2 (08:24→12:21)
[2021-02-16] MEDS: DOCUSATE SODIUM 100 MG CAPSULE PO SCH (08:24)
[2021-02-16] MEDS: levETIRAcetam IV 500 MG in IV DEXTROSE 5% 100 ML IV SCH (08:25)
[2021-02-16] MEDS: NYSTATIN POWDER 15 GM BOTTLE TOP SCH (08:26)
[2021-02-16] MEDS: DULOXETINE 60 MG CAPSULE.DR PO SCH (08:26)
--- NOTE | 2021-02-16 08:30 | NUR ---
Patient been follow up by family reunification specialist Dr. Salazar, report given see order hx,.
--- NOTE | 2021-02-16 08:40 | NUR ---
Cardiology services, Dr. De La Torre in the unit to examine pt. report given and orders received, and implemented.
[2021-02-16] MEDS ORDERED: SODIUM BICARBONATE 8.4% 50 MEQ/50 ML DISP.SYRIN IV ONE (09:00)
[2021-02-16] MEDS ORDERED: DEXTROSE 50% 50 ML DISP.SYRIN IV ONE (09:00)
[2021-02-16] MEDS ORDERED: CALCIUM GLUCONATE IV 1 GM in IV NORMAL SALINE 100 ML IV ONE (09:00)
[2021-02-16] MEDS ORDERED: SODIUM POLYSTYRENE SULFONATE 15 G/60 ML LIQUID UDC NG ONE (09:00)
[2021-02-16] MEDS ORDERED: INSULIN REGULAR, HUMAN 300 UNIT/3 ML VIAL IV ONE (09:00)
[2021-02-16] MEDS: IV D5LR 1,000 ML IV PRN (09:36)
[2021-02-16 10:06] LABS: CRYPTOCOCCUS AB, SERUM Negative (Negative)
--- NOTE | 2021-02-16 11:20 | NUR ---
Attending Daren Magallon in the unit to see and examine pt. Addendum: 02/16/21 at 1221 by ANTHONY CHAMORRO RN Orders to continue with care plan received.
--- NOTE | 2021-02-16 11:32 | NUR ---
Unable to obtain an SBP reading, pt. maxed on [address] De La Torre process controls technician and attending Dereck Krause aware.
--- NOTE | 2021-02-16 12:11 | NUR ---
A call to Director Of Cardiac Cath Lab and at this time He was updated on pt's current condition, orders to start vasopressin received.
[2021-02-16] MEDS: VASOPRESSIN 40 UNIT in IV NORMAL SALINE 40 ML IV PRN ×2 (12:33→12:55)
--- NOTE | 2021-02-16 15:28 | NUR ---
System trouble shot and SBP cuff changed but unable to obtain SBP reading.
--- NOTE | 2021-02-16 15:55 | NUR ---
After more than 2 hours unable to obtain SBP and pt. max-out on 3 vasopressors at this time patient went bradycardic and immediately and asystole.
--- NOTE | 2021-02-16 15:59 | NUR ---
PATIENT APNEIC FOR 1 MINUTE PUPILS FIXED AND DILATED NO CORNEAL REFLEX NO AUDIBLE HEART SOUNDS FOR 1 MINUTE NO BREATH SOUNDS FOR ONE MINUTE PATIENT PRONOUNCED BY Jason DURON.
--- NOTE | 2021-02-16 15:59 | NUR ---
Nursing warehouse shift supervisor, attending physician, wafer batter mixer, utilization specialist and all disciplines involved in pt. care informed of TOD.
[2021-02-16] MEDS ORDERED: MEROPENEM 1 G in IV NORMAL SALINE 100 ML IV SCH (16:00)
--- NOTE | 2021-02-16 16:05 | NUR ---
Pt's brother Mr. SchofieldShlomo called to be informed of his his sister Time of . At the same time He was informed of arrangement information needed to arrange order picker of pt's body. As stated by ChanduShlomo He'll call when information will be available.
--- NOTE | 2021-02-16 16:15 | NUR ---
[facility] called and the caption writer spoke with medical field representative Tia report given and RID [id number] received and I was informed that a coordinator will give us a follow up call.
--- NOTE | 2021-02-16 16:42 | NUR ---
A follow up call from [facility] this time Paulette on the phone report given and as stated by her Patient is rule out from any possible organ donation and the body is release. new ID number received. [id number]
--- NOTE | 2021-02-16 16:58 | NUR ---
Added to belonging list 3 little earings on left side and 2 earings on right side One of those sets has a red stone and one set has transparent stone in the center. 1 earing is light blue in color and has no match. and 1 small ring on the right 2nd toe. Mr. Keenan was called message left informing him that his sister's belongings will be with the body at the morgue. Addendum: 02/16/21 at 1702 by ANTHONY CHAMORRO RN counting of belongings was witness by Jason Odonnell.
--- NOTE | 2021-02-16 18:00 | NUR ---
Post-mortem care provided and pt. left covered with a sheet, unable to fit her body in the body bag. toe, tag, belongings at her side with tag attached. pt's brother Shlomo was informed as well and as stated "I'll parts picker the belongings at any time" He was informed that belongings will be going with her. Nursing core assembly supervisor informed as well that belongings are next to the body.
--- NOTE | 2021-02-16 18:33 | NUR ---
A call from Nursing retail supervisor Mr. Crystal West and at this time I was informed that body will be olive picker by [facility]. And He will call back with time of arrival.
--- NOTE | 2021-02-16 19:02 | NUR ---
Incoming shift informed that body will be picker and to call brother and inform him where to call with information of arrangement.
[2021-02-16] MEDS ORDERED: HEPARIN SODIUM,PORCINE 5,000 UNITS/ML VIAL SQ SCH (21:00)
--- NOTE | 2021-02-16 23:31 | NUR ---
1899 Patient body still here, wrapped with blankets and name tags attached. 2019 Spoke with Nursing Warp Preparer Tre regarding patient's body. Per Tre, to call family and to find out mortuary arrangement. 2024 Called Shlomo (brother), no answer and left a voicemail. Awaiting for callback. 2109 Spoke with Shlomo regarding patient's mortuary. He stated, "I will call back tomorrow." Informed him regarding patient's belongings to be sent with the body at the [facility]. 2139 Notified Nursing filing and polishing supervisor Tre. Called security and EVS for help in transporting patient's body. 2299 Body to the [facility] with [place]'s belongings. Addendum: 02/22/21 at 2335 by Jeannie Lester RN 2139 Per Warp Preparer PEDRO [place] to tighten and secure patient's body with cloth around shoulder, hip and leg area. 2300 Body could not fit on [facility] gurney. Bariatric bed was used in transporting body to the [facility], accompanied by 3 security guards, 3 evs aide, and 1 RN. Patient's body was placed on the [facility] table as body could not fit in the freezer. Patient's belongings with patient's body. Warp Preparer made aware. Family member made aware.
--- NOTE | 2021-02-17 08:58 | NUR ---
Clinical Social Work Note SW called patient's brother, Shlomo Schofield ([phone]) to inform him about needing to set up mortuary in order to have patient' s body as soon as they can. SW was unable to get a hold of patient's brother and left him a voicemail. Plan: SW will continue to follow up with patient's brother.
--- NOTE | 2021-02-17 10:47 | NUR ---
Clinical Social Work Note SW called patient's brother, Shlomo Schofield ([phone]) to inform him about needing to set up mortuary in order to have patient' s body as soon as they can. Call was forwarded to voicemail and SW left Shlomo a voicemail. Plan: MICHAEL will continue to attempt to contact Shlomo.
--- NOTE | 2021-02-17 11:33 | NUR ---
Clinical Social Work Note SW called patient's brother, Shlomo Schofield ([phone]) and discussed the need for patient's body to be picked up today. Patient's brother stated he has found a mortuary, [facility] ([address] [place] [id number], ). Patient's brother stated that he is awaiting to sign contract with them and was informed mortuary can milk pickup driver body today. Plan: SW will continue to work with patient's brother to coordinate picking up of body.
== END 2021-02-16 23:30 | DRG 208 ==
LOC: ER 19:23 → TRANSITION 02-09 00:10 → TELE3 02-09 12:31 → TELE-TD3 02-10 16:03 → CCU 02-13 14:20
PROVIDERS: ADMIT Registered Nurse; ATTEND Nurse Practitioner Family
PROC: 5A09457 Assistance with Respiratory Ventilation, 24-96 Consecutive Hours, Continuous Positive Airway Pressure (ICD-10-PCS; principal; 2021-02-09)
PROC: 05HF33Z Insertion of Infusion Device into Left Cephalic Vein, Percutaneous Approach (ICD-10-PCS; 2021-02-12)
PROC: 5A1945Z Respiratory Ventilation, 24-96 Consecutive Hours (ICD-10-PCS; 2021-02-13)
PROC: 0BH17EZ Insertion of Endotracheal Airway into Trachea, Via Natural or Artificial Opening (ICD-10-PCS; 2021-02-13)
PROC: 5A12012 Performance of Cardiac Output, Single, Manual (ICD-10-PCS; 2021-02-13)
PROC: 02HV33Z Insertion of Infusion Device into Superior Vena Cava, Percutaneous Approach (ICD-10-PCS; 2021-02-13)
PROC: B548ZZA Ultrasonography of Superior Vena Cava, Guidance (ICD-10-PCS; 2021-02-13)
PROC: XW033H5 Introduction of Tocilizumab into Peripheral Vein, Percutaneous Approach, New Technology Group 5 (ICD-10-PCS; 2021-02-14)
DX: U07.1 COVID-19 (principal); J96.22 Acute and chronic respiratory failure with hypercapnia; I50.33 Acute on chronic diastolic (congestive) heart failure; J12.82 Pneumonia due to coronavirus disease 2019; J96.21 Acute and chronic respiratory failure with hypoxia; A41.89 Other specified sepsis; N17.0 Acute kidney failure with tubular necrosis; J15.9 Unspecified bacterial pneumonia; R65.21 Severe sepsis with septic shock; Z68.45 Body mass index [BMI] 70 or greater, adult; E66.2 Morbid (severe) obesity with alveolar hypoventilation; G93.40 Encephalopathy, unspecified; J44.0 Chronic obstructive pulmonary disease with (acute) lower respiratory infection; I13.0 Hypertensive heart and chronic kidney disease with heart failure and stage 1 through stage 4 chronic kidney disease, or unspecified chronic kidney disease; D64.9 Anemia, unspecified; E83.42 Hypomagnesemia; E83.39 Other disorders of phosphorus metabolism; E87.5 Hyperkalemia; N18.9 Chronic kidney disease, unspecified; Z87.891 Personal history of nicotine dependence; G40.909 Epilepsy, unspecified, not intractable, without status epilepticus; K21.9 Gastro-esophageal reflux disease without esophagitis; G25.81 Restless legs syndrome; E11.42 Type 2 diabetes mellitus with diabetic polyneuropathy; I95.9 Hypotension, unspecified; D69.59 Other secondary thrombocytopenia; Z79.4 Long term (current) use of insulin; I46.9 Cardiac arrest, cause unspecified; T50.2X5A Adverse effect of carbonic-anhydrase inhibitors, benzothiadiazides and other diuretics, initial encounter; Z66 Do not resuscitate; E11.22 Type 2 diabetes mellitus with diabetic chronic kidney disease
CPT/HCPCS: 36415; 36600; 70030-TC; 71045; 83605; 83615; 83735; 84100; 85018; 85025; 86140; 86480; 87040; 87070; 87077; 87086; 87328; 93005; 93307; 94002; 94003; 94660; 94760; 97161; A4663; A6209; C9113; G0378; J0171; J0456; J0610; J0692; J1100; J1650; J1815; J1940; J1953; J2185; J2370; J2543; J3262; J3370; J3475; J3490; J3590; J7030; J7040; J7050; J7060; J7070; J8499; U0003